=== PATIENT | female | born 1970 | race American Indian/Alaskan Native ===

== ENCOUNTER 2016-10-19 16:26 | Emergency (ER) | payer OTHER ==
[2016-10-19 18:24] LABS: Basophils % (Auto) 0.3 % (0.0-1.8); Eosinophils % (Auto) 0.6 % (0.0-4.3); Hematocrit 43.9 % (30.3-42.9); Hemoglobin 14.1 gm/dl (10.1-14.3); Mean Corpuscular HGB Conc 32 % (30-34); Mean Corpuscular Hemoglobin 29 pg (28-32); Mean Corpuscular Volume 89 fl (79-97); Platelet Count 213 K/mm3 (140-440); Red Blood Count 4.95 M/mm3 (3.65-5.03); White Blood Count 6.9 K/mm3 (4.5-11.0)
[2016-10-19 18:27] LABS: Red Cell Distribution Width 20.8 % (13.2-15.2)
[2016-10-19 18:34] LABS: Anion Gap 20 mmol/L; Blood Urea Nitrogen 7 mg/dL (7-17); Calcium 9.2 mg/dL (8.4-10.2); Carbon Dioxide 26 mmol/L (22-30); Chloride 96.6 mmol/L (98-107); Glucose 80 mg/dL (65-100); Potassium 4.1 mmol/L (3.6-5.0); Sodium 138 mmol/L (137-145)
[2016-10-20] MEDS ORDERED: ULTRAM PO ONE (01:55)
[2016-10-20] MEDS ORDERED: CATAPRES PO ONE (01:55)
[2016-10-20] MEDS ORDERED: TORADOL IV ONE (01:55)
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
[2016-10-20] MEDS ORDERED: NACL ONE (03:42)
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
[2016-10-20 05:45] VITALS: BP 126/77
== END 2016-10-20 06:02 | disposition home or self-care (01) ==
LOC: ED 16:26
DX: S39.012A Strain of muscle, fascia and tendon of lower back, initial encounter (principal); N83.209 Unspecified ovarian cyst, unspecified side; I10 Essential (primary) hypertension; V49.49XA Driver injured in collision with other motor vehicles in traffic accident, initial encounter; Y93.9 Activity, unspecified; Y92.9 Unspecified place or not applicable; Y99.9 Unspecified external cause status
CPT/HCPCS: 36415; 74174; 80048; 84703; 85025; 96374; 99284; J1885; Q9967

== ENCOUNTER 2018-07-16 16:13 | Emergency (ER) | payer OTHER ==
[2018-07-16 16:53] VITALS: BP 133/85
--- NOTE | 2018-07-16 16:53 | Emergency Department Report ---
Blank Doc - Documentation Documentation: This is a 48-year-old female that presents with midsternum chest pain with cou gh. Denies any radiation or SOB. Also has abdominal pain with blood in stool. This initial assessment/diagnostic orders/clinical plan/treatment(s) is/are subject to change based on patient's health status, clinical progression and re- assessment by fellow clinical providers in the ED. Further treatment and workup at subsequent clinical providers discretion. Patient/guardians urged not to elope from the ED as their condition may be serious if not clinically assessed and managed. Initial orders include: 1- Patient sent to MAIN ED for further evaluation and treatment 2- labs 3- EKG 4- CXR
[2018-07-16 17:35] LABS: Basophils % (Auto) 0.6 % (0.0-1.8); Eosinophils % (Auto) 0.4 % (0.0-4.3); Hematocrit 53.3 % (30.3-42.9); Hemoglobin 18.3 gm/dl (10.1-14.3); Lymphocytes # (Auto) 2.3 K/mm3 (1.2-5.4); Lymphocytes % (Auto) 35.8 % (13.4-35.0); Mean Corpuscular HGB Conc 34 % (30-34); Mean Corpuscular Volume 93 fl (79-97); Monocytes # (Auto) 0.5 K/mm3 (0.0-0.8); Monocytes % (Auto) 7.6 % (0.0-7.3); Platelet Count 245 K/mm3 (140-440); Red Blood Count 5.74 M/mm3 (3.65-5.03); Red Cell Distribution Width 16.9 % (13.2-15.2)
[2018-07-16 17:48] LABS: BUN/Creatinine Ratio 18; Blood Urea Nitrogen 11 mg/dL (7-17); Calcium 8.9 mg/dL (8.4-10.2); Hemolysis Index 15
[2018-07-16 17:49] LABS: INR 0.94 (0.87-1.13); Partial Thromboplastin Time 31.5 Sec. (24.2-36.6)
[2018-07-16 18:02] LABS: Amphetamine Screen,Urine PRESUMPTIVE NEGATIVE; Benzodiazepines Screen,Urine PRESUMPTIVE NEGATIVE; Cocaine Screen,Urine PRESUMPTIVE NEGATIVE; Methadone Screen,Urine PRESUMPTIVE NEGATIVE; Opiate Screen,Urine PRESUMPTIVE NEGATIVE
[2018-07-16 18:06] LABS: Bacteria,Urine 1+ /HPF (Negative); Bilirubin,Urine NEG (Negative); Blood,Urine NEG (Negative); Color,Urine Yellow (Yellow); Hyaline Casts,Urine 4 /LPF; Mucus,Urine 3+ /HPF; Urobilinogen,Urine < 2.0 mg/dL (<2.0)
[2018-07-16 18:46] LABS: Cannabinoid Screen,Urine PRESUMPTIVE POSITIVE
--- NOTE | 2018-07-17 02:36 | Emergency Department Report ---
ED Abdominal Pain HPI - General Chief Complaint: Abdominal Pain Stated Complaint: CHEST PAIN/BLOOD IN STOOL Time Seen by Provider: 07/16/18 16:51 Source: patient Mode of arrival: Ambulatory Limitations: No Limitations - History of Present Illness Initial Comments: Patient is a 48-year-old -[place] female with a history of peptic ulcers who presents to the ED with persistent persistent diffuse lower abdominal pain with hematochezia and diarrhea intermittently for the last 3 months. Patient states that the pain got worse in the last 2 days and that she's had nausea but no vomiting. Patient denies dizziness, weakness, fatigue, syncope, headache, vomiting, dysuria, urinary frequency and urgency, vaginal bleeding or chest pain or shortness of breath. Patient states that she was evaluated by a GI physician about a year ago that diagnosed a week peptic ulcer disease after an EGD procedure. Patient admits that she has never had a colonoscopy. Patient states that her pain is intermittent and persistent for 3 months. MD Complaint: abdominal pain, other (hematochezia) -: Gradual, month(s) (3) Location: diffuse, LLQ, RLQ, suprapubic Radiation: none Migration to: suprapubic Severity: moderate Severity scale (0 -10): 6 Quality: cramping, aching Consistency: intermittent Improves With: nothing Worsens With: nothing Associated Symptoms: nausea, diarrhea, hematochezia. denies: vomiting, fever, chills, constipation, dysuria, hematemesis, melena, hematuria, anorexia, syncope - Related Data Previous Rx's Medication Instructions Recorded Last Taken Type amLODIPine [Norvasc] 5 mg PO DAILY #30 tab 10/20/16 Unknown Rx traMADol [Ultram 50 MG tab] 50 mg PO Q6HR PRN #20 tablet 10/20/16 Unknown Rx HYDROcodone/APAP 5-325 [[place] 1 each PO Q6HR PRN #12 tablet 04/22/18 Unknown Rx 5-325 mg TAB] Ibuprofen [Motrin 800 MG tab] 800 mg PO Q8HR PRN #30 tablet 04/22/18 Unknown Rx Allergies Allergy/AdvReac Type Severity Reaction Status Date / Time No Known Allergies Allergy Verified 10/19/16 17:14 ED Review of Systems ROS: Stated complaint: CHEST PAIN/BLOOD IN STOOL Other details as noted in HPI Comment: All other systems reviewed and negative Constitutional: no symptoms reported, see HPI. denies: chills, diaphoresis, malaise, weakness Eyes: as per HPI. denies: eye pain, eye discharge, vision change ENT: as per HPI. denies: ear pain, dental pain, hearing loss Respiratory: no symptoms reported, see HPI. denies: cough, shortness of breath, SOB with exertion, SOB at rest Cardiovascular: as per HPI. denies: chest pain, palpitations, dyspnea on e xertion, syncope, paroxysmal nocturnal dyspnea Endocrine: no symptoms reported, see HPI. denies: excessive sweating, intolerance to cold, increased thirst, increased urine, unexplained weight loss Gastrointestinal: abdominal pain, hematochezia Genitourinary: as per HPI. denies: urgency, dysuria, frequency, hematuria Musculoskeletal: as per HPI. denies: joint swelling, arthralgia Skin: as per HPI. denies: rash, lesions, change in color, change in hair/nails Neurological: as per HPI. denies: headache, numbness, paresthesias, abnormal gait Psychiatric: as per HPI. denies: auditory hallucinations, visual hallucinations Hematological/Lymphatic: as per HPI. denies: easy bruising, swollen glands ED Past Medical Hx - Past Medical History Hx Hypertension: Yes Hx Diabetes: Yes Additional medical history: Peptic ulcers - Surgical History Additional Surgical History: x 1 - Social History Smoking Status: Current Every Day Smoker Substance Use Type: Alcohol - Medications Home Medications: Home Medications Medication Instructions Recorded Confirmed Last Taken Type amLODIPine [Norvasc] 5 mg PO DAILY #30 tab 10/20/16 Unknown Rx traMADol [Ultram 50 MG tab] 50 mg PO Q6HR PRN #20 tablet 10/20/16 Unknown Rx HYDROcodone/APAP 5-325 [[place] 1 each PO Q6HR PRN #12 tablet 04/22/18 Unknown Rx 5-325 mg TAB] Ibuprofen [Motrin 800 MG tab] 800 mg PO Q8HR PRN #30 tablet 04/22/18 Unknown Rx ED Physical Exam - General Limitations: No Limitations General appearance: alert, in no apparent distress - Head Head exam: Present: atraumatic, normocephalic, normal inspection - Eye Eye exam: Present: normal appearance, PERRL, EOMI Pupils: Present: normal accommodation - ENT ENT exam: Present: normal exam, normal orophraynx, mucous membranes moist, TM's normal bilaterally, normal external ear exam - Neck Neck exam: Present: normal inspection, full ROM - Respiratory Respiratory exam: Present: normal lung sounds bilaterally. Absent: respiratory distress, wheezes, rales, chest wall tenderness, accessory muscle use, decreased breath sounds - Cardiovascular Cardiovascular Exam: Present: normal rhythm, tachycardia, normal heart sounds - GI/Abdominal GI/Abdominal exam: Present: soft, tenderness (diffuse lower abdomen), normal bowel sounds. Absent: guarding, rebound, hyperactive bowel sounds, hypoactive bowel sounds, organomegaly, mass, pulsatile mass - Rectal Rectal exam: Present: other (Patient declined rectal exam) - Extremities Exam Extremities exam: Present: normal inspection, full ROM, normal capillary refill - Back Exam Back exam: Present: normal inspection, full ROM. Absent: tenderness, CVA tenderness (R), muscle spasm, paraspinal tenderness - Neurological Exam Neurological exam: Present: alert, oriented X3, CN II-XII intact, normal gait, reflexes normal - Psychiatric Psychiatric exam: Present: normal affect, anxious. Absent: suicidal ideation - Skin Skin exam: Present: warm, dry, intact ED Course Vital Signs 07/16/18 07/16/18 16:51 19:55 Temperature 98.4 F Pulse Rate 111 H 84 Respiratory 22 17 Rate Blood Pressure 133/85 O2 Sat by Pulse 98 99 Oximetry - Reevaluation(s) Reevaluation #1: 07/17/18 02:40 Patient is alert and oriented 3 and is not in any distress but tachycardic in triage. Labs were drawn in the ED included a urinalysis. Lab test results were reviewed and are unremarkable. Patient declined Hemoccult tests and decided to sign out AGAINST MEDICAL ADVICE. 07/17/18 02:41 ED Medical Decision Making - Lab Data Result diagrams: 07/16/18 17:12 07/16/18 17:12 - Medical Decision Making Patient is alert and oriented 3 and is not in any distress but tachycardic in triage. Labs were drawn and the results were reviewed and are all unremarkable. Patient declined further tests including Hemoccult and opted to sign out against medical advise from the ED. - Differential Diagnosis GI BLEEDING, ABDOMINAL PAIN, PEPTIC ULCER DISEASE, DIVERITICULITIS Critical care attestation.: If time is entered above; I have spent that time in minutes in the direct care of this critically ill patient, excluding procedure time. ED Disposition Clinical Impression: GI bleeding Qualifiers: GI bleed type/associated pathology: anorectal hemorrhage Qualified Code(s): K62.5 - Hemorrhage of anus and rectum Abdominal pain Qualifiers: Abdominal location: lower abdomen, unspecified Qualified Code(s): R10.30 - Lower abdominal pain, unspecified Disposition: LEFT AGAINST MED ADVICE Is pt being admited?: No Does the pt Need Aspirin: No Condition: Stable Instructions: Gastrointestinal Bleeding (ED), Abdominal Pain (ED) Referrals: CARMEN REDDY MD [Primary Care Provider] - 3-5 Days Forms: AMA Form, Work/School Release Form(ED) Time of Disposition: 21:34 Print Language: CZECH
== END 2018-07-16 19:55 | disposition left against medical advice (07) ==
LOC: ED 16:13
DX: K92.2 Gastrointestinal hemorrhage, unspecified (principal); I10 Essential (primary) hypertension; E11.9 Type 2 diabetes mellitus without complications; F17.200 Nicotine dependence, unspecified, uncomplicated
CPT/HCPCS: 36415; 80048; 80307; 81001; 83690; 84484; 84703; 85025; 85610; 85730; 93005; 93010; 99284

== ENCOUNTER 2019-10-12 17:01 | Emergency (ER) | payer OTHER ==
[2019-10-13] MEDS ORDERED: HYDROcodone/ACETAMINOPHEN 5-325 MG TAB PO ONE (00:30)
--- NOTE | 2019-10-13 00:44 | XRay Report ---
RIGHT FOOT 3 VIEWS 0027 INDICATION: swelling and pain after injury COMPARISON: None available. FINDINGS: Study was difficult due to patient cooperation. Lucency is seen in the anterior calcaneus w hich appears to represent a nondisplaced but mildly complex fracture. No dislocation is seen. Signer Name: Yahir Soto MD Signed: 10/13/2019 12:40 AM Workstation Name: [id number]
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
[2019-10-13] MEDS ORDERED: KETOROLAC 30 MG/1 ML INJ IM ONE (01:36)
[2019-10-13 02:07] VITALS: BP 148/88
== END 2019-10-13 02:30 | disposition home or self-care (01) ==
LOC: ED 17:01
DX: S92.014A Nondisplaced fracture of body of right calcaneus, initial encounter for closed fracture (principal); I10 Essential (primary) hypertension; E11.9 Type 2 diabetes mellitus without complications; F17.200 Nicotine dependence, unspecified, uncomplicated; Z79.899 Other long term (current) drug therapy; Z98.890 Other specified postprocedural states; W17.89XA Other fall from one level to another, initial encounter; Y93.89 Activity, other specified; Y92.89 Other specified places as the place of occurrence of the external cause; Y99.8 Other external cause status
CPT/HCPCS: 29515; 73630; 96372; 99283; J1885

== ENCOUNTER 2019-12-11 12:21 | Outpatient (CLI) | payer BC, OTHER ==
--- NOTE | 2019-12-11 14:51 | XRay Report ---
RIGHT CALCANEUS 2 VIEWS INDICATION: UNSPECIFIED FRACTURE OF RIGHT CALCANEOUS. COMPARISON: Right foot films 10/13/2019 IMPRESSION: Subtle nondisplaced fracture in the anterior calcaneus is unchanged in position or align ment since the previous exam. Subtle callus formation is noted. No new findings are demonstrated. No joint pathology. Soft tissue swelling has nearly resolved. Signer Name: Brayden Weinstein Jr, MD Signed: 12/11/2019 1:22 PM Workstation Name: [id number]
== END 2019-12-11 12:22 | disposition home or self-care (01) ==
LOC: XRAY 12:21
PROVIDERS: ATTEND Orthopaedic Surgery
DX: S92.001D Unspecified fracture of right calcaneus, subsequent encounter for fracture with routine healing (principal); X58.XXXD Exposure to other specified factors, subsequent encounter

== ENCOUNTER 2020-07-06 13:44 | Emergency (ER) | payer BC ==
--- NOTE | 2020-07-06 14:58 | Event Note ---
ED Screening Note Date of service: 07/06/20 Time: 14:56 ED Screening Note: Patient presents to the ER today with complaints of elevated blood pressure. She states that she went to the urgent care this morning because for the past couple days she has been having abdominal pain and for the past week she has not been feeling well, she has been feeling lightheaded and dizzy and Monday was having difficulty with her right upper and lower extremity. She states that he felt weak and was painful was having difficulty using her right upper and lower extremity but this has since improved. At the urgent care her blood pressure was significantly elevated and she was sent to the ER. Patient does have a known history of hypertension but has been noncompliant with her medication This initial assessment/diagnostic orders/clinical plan/treatment(s) is/are subject to change based on patients health status, clinical progression and re- assessment by fellow clinical providers in the ED. Further treatment and workup at subsequent clinical providers discretion. Patient/guardian urged not to elope from the ED as their condition may be serious if not clinically assessed and managed. Initial orders include: Labs/EKG/head CT
--- NOTE | 2020-07-06 15:57 | XRay Report ---
XR chest routine 2V INDICATION / CLINICAL INFORMATION: Chest Pain COMPARISON: None available. FINDINGS: SUPPORT DEVICES: None. HEART / MEDIASTINUM: No significant abnormality. LUNGS / PLEURA: Lungs are clear. Costophrenic sulci are sharp. No pneumothorax. ADDITIONAL FINDINGS: No significant additional findings. IMPRESSION: 1. No acute findings. Signer Name: Tristan Clinton MD Signed: 07/06/2020 3:53 PM Workstation Name: [id number]
[2020-07-06 16:10] LABS: Basophils # (Auto) 0.1 K/mm3 (0.0-0.1); Basophils % (Auto) 0.7 % (0.0-1.8); Eosinophils % (Auto) 0.1 % (0.0-4.3); Hemoglobin 19.8 gm/dl (10.1-14.3); Lymphocytes # (Auto) 2.1 K/mm3 (1.2-5.4); Lymphocytes % (Auto) 25.6 % (13.4-35.0); Mean Corpuscular HGB Conc 34 % (30-34); Mean Corpuscular Volume 102 fl (79-97); Monocytes # (Auto) 0.6 K/mm3 (0.0-0.8); Monocytes % (Auto) 7.8 % (0.0-7.3); Red Blood Count 5.78 M/mm3 (3.65-5.03); Red Cell Distribution Width 14.9 % (13.2-15.2)
[2020-07-06 16:21] LABS: INR 1.02 (0.87-1.13)
[2020-07-06 16:22] LABS: Partial Thromboplastin Time 29.7 Sec. (24.2-36.6)
[2020-07-06 16:25] LABS: Alanine Aminotransferase 45 units/L (7-56); Albumin 4.1 g/dL (3.9-5); Blood Urea Nitrogen 8 mg/dL (7-17); Calcium 8.8 mg/dL (8.4-10.2); Hemolysis Index 28
[2020-07-06 16:26] LABS: BUN/Creatinine Ratio 20
--- NOTE | 2020-07-06 16:45 | Cat Scan Report ---
CT BRAIN: 07/06/2020 INDICATION / CLINICAL INFORMATION: dizzy/right sided weakness/elevated bp for few days Rt sided numbness x few days. COMPARISON: None available. FINDINGS: BRAIN/INTRACRANIAL STRUCTURES: Unenhanced CT images of the brain demonstrate no evidence of acute int racranial abnormality. Ventricles and sulci are within normal limits of size and shape for a patient of this age. There is no evidence of ischemic injury, hemorrhage, or mass. There are no abnormal extra-axial fluid collections. EXTRACRANIAL STRUCTURES: Unremarkable. IMPRESSION: No acute abnormality. Negative unenhanced CT of the brain. All CT scans at this location are performed using dose reduction to ALARA by means of automated expos ure control. Signer Name: Jay Rodriguez MD Signed: 07/06/2020 4:41 PM Workstation Name: [id number]
[2020-07-06] MEDS ORDERED: hydrALAZINE 20 MG/1 ML INJ IV ONE (16:55)
[2020-07-06 17:03] LABS: Platelet Count 180 K/mm3 (140-440)
--- NOTE | 2020-07-06 17:23 | Emergency Department Report ---
ED General Adult HPI - General Chief complaint: High BP Stated complaint: HYPERTENSIVE Time Seen by Provider: 07/06/20 16:04 Source: patient Mode of arrival: Ambulatory Limitations: No Limitations - History of Present Illness Initial comments: Patient presents to the emergency department after being seen in urgent care for elevated blood pressure. Patient's BP is 242/173 on my evaluation. Patient complains of dizziness and headaches with blurred vision. Patient also complains of chest tightness as well. Patient states her original reasoning for going to the urgent care was due to abdominal pain that has been present for a year. Patient describes the abdominal pain being located in the upper aspect of her stomach. -: unknown Location: head, abdomen Radiation: non-radiation Severity scale (0 -10): 7 Quality: sharp Consistency: constant Improves with: none Worsens with: none Associated Symptoms: denies other symptoms Treatments Prior to Arrival: none - Related Data Previous Rx's Medication Instructions Recorded Last Taken Type amLODIPine [Norvasc] 5 mg PO DAILY #30 tab 10/20/16 Unknown Rx traMADoL [Ultram 50 MG tab] 50 mg PO Q6HR PRN #20 tablet 10/20/16 Unknown Rx HYDROcodone/APAP 5-325 [Jolon 1 each PO Q6HR PRN #12 tablet 04/22/18 Unknown Rx 5-325 mg TAB] Ibuprofen [Motrin 800 MG tab] 800 mg PO Q8HR PRN #30 tablet 04/22/18 Unknown Rx Acetaminophen/Codeine [Tylenol 1 tab PO Q6H PRN #10 tab 10/13/19 Unknown Rx /Codeine # 3 tab] Ibuprofen [Motrin 800 MG tab] 800 mg PO Q8HR PRN #21 tablet 10/13/19 Unknown Rx Amoxicillin/Potassium Clav 1 each PO BID #14 tablet 07/06/20 Unknown Rx [Augmentin 875-125 Tablet] amLODIPine [Norvasc] 10 mg PO DAILY #30 tab 07/06/20 Unknown Rx hydroCHLOROthiazide [Hctz] 25 mg PO QDAY #30 capsule 07/06/20 Unknown Rx Allergies Allergy/AdvReac Type Severity Reaction Status Date / Time No Known Allergies Allergy Verified 10/19/16 17:14 ED Review of Systems ROS: Stated complaint: HYPERTENSIVE Other details as noted in HPI Comment: All other systems reviewed and negative Constitutional: denies: chills, fever Eyes: denies: eye pain, eye discharge, vision change ENT: denies: ear pain, throat pain Respiratory: denies: cough, shortness of breath, wheezing Cardiovascular: denies: chest pain, palpitations Endocrine: no symptoms reported Gastrointestinal: denies: abdominal pain, nausea, diarrhea Genitourinary: denies: urgency, dysuria, discharge Musculoskeletal: denies: back pain, joint swelling, arthralgia Skin: denies: rash, lesions Neurological: headache. denies: weakness, paresthesias Psychiatric: denies: anxiety, depression Hematological/Lymphatic: denies: easy bleeding, easy bruising ED Past Medical Hx - Past Medical History Previous Medical History?: Yes Hx Hypertension: Yes Hx Diabetes: Yes Additional medical history: Peptic ulcers - Surgical History Additional Surgical History: x 1 - Social History Smoking Status: Never Smoker - Medications Home Medications: Home Medications Medication Instructions Recorded Confirmed Last Taken Type amLODIPine [Norvasc] 5 mg PO DAILY #30 tab 10/20/16 Unknown Rx traMADoL [Ultram 50 MG tab] 50 mg PO Q6HR PRN #20 tablet 10/20/16 Unknown Rx HYDROcodone/APAP 5-325 [Jolon 1 each PO Q6HR PRN #12 tablet 04/22/18 Unknown Rx 5-325 mg TAB] Ibuprofen [Motrin 800 MG tab] 800 mg PO Q8HR PRN #30 tablet 04/22/18 Unknown Rx Acetaminophen/Codeine [Tylenol 1 tab PO Q6H PRN #10 tab 10/13/19 Unknown Rx /Codeine # 3 tab] Ibuprofen [Motrin 800 MG tab] 800 mg PO Q8HR PRN #21 tablet 10/13/19 Unknown Rx Amoxicillin/Potassium Clav 1 each PO BID #14 tablet 07/06/20 Unknown Rx [Augmentin 875-125 Tablet] amLODIPine [Norvasc] 10 mg PO DAILY #30 tab 07/06/20 Unknown Rx hydroCHLOROthiazide [Hctz] 25 mg PO QDAY #30 capsule 07/06/20 Unknown Rx ED Physical Exam - General Limitations: No Limitations General appearance: alert, in no apparent distress - Head Head exam: Present: atraumatic, normocephalic - Eye Eye exam: Present: normal appearance, PERRL - ENT ENT exam: Present: mucous membranes moist - Neck Neck exam: Present: normal inspection - Respiratory Respiratory exam: Present: normal lung sounds bilaterally. Absent: respiratory distress - Cardiovascular Cardiovascular Exam: Present: regular rate, normal rhythm. Absent: systolic murmur, diastolic murmur, rubs, gallop - GI/Abdominal GI/Abdominal exam: Present: soft, normal bowel sounds. Absent: distended, tenderness - Extremities Exam Extremities exam: Present: normal inspection - Back Exam Back exam: Present: normal inspection - Neurological Exam Neurological exam: Present: alert, oriented X3, CN II-XII intact. Absent: motor sensory deficit - Psychiatric Psychiatric exam: Present: normal affect, normal mood - Skin Skin exam: Present: warm, dry, intact, normal color. Absent: rash ED Course Vital Signs 07/06/20 07/06/20 07/06/20 14:47 16:09 16:30 Temperature 98.6 F Pulse Rate 98 H 100 H Respiratory 18 14 Rate Blood Pressure 204/134 Blood Pressure 200/132 242/173 [Left] Blood Pressure 197/139 [Right] O2 Sat by Pulse 99 Oximetry 07/06/20 07/06/20 07/06/20 17:00 17:06 18:14 Temperature Pulse Rate 84 97 H 111 H Respiratory 13 16 Rate Blood Pressure 205/136 205/136 126/77 Blood Pressure [Left] Blood Pressure [Right] O2 Sat by Pulse Oximetry 07/06/20 19:00 Temperature Pulse Rate 106 H Respiratory 20 Rate Blood Pressure 122/81 Blood Pressure [Left] Blood Pressure [Right] O2 Sat by Pulse 98 Oximetry ED Medical Decision Making - Lab Data Result diagrams: 07/06/20 15:45 07/06/20 15:45 Lab Results 07/06/20 07/06/20 07/06/20 Range/Units 15:45 15:45 15:45 WBC 8.0 (4.5-11.0) K/mm3 RBC 5.78 H (3.65-5.03) M/mm3 Hgb 19.8 H (10.1-14.3) gm/dl Hct 59.0 H* (30.3-42.9) % MCV 102 H (79-97) fl MCH 34 H (28-32) pg MCHC 34 (30-34) % RDW 14.9 (13.2-15.2) % Plt Count 180 (140-440) K/mm3 Lymph % (Auto) 25.6 (13.4-35.0) % Delta % (Auto) 7.8 H (0.0-7.3) % Eos % (Auto) 0.1 (0.0-4.3) % Baso % (Auto) 0.7 (0.0-1.8) % Lymph # (Auto) 2.1 (1.2-5.4) K/mm3 Delta # (Auto) 0.6 (0.0-0.8) K/mm3 Eos # (Auto) 0.0 (0.0-0.4) K/mm3 Baso # (Auto) 0.1 (0.0-0.1) K/mm3 Seg Neutrophils % 65.8 (40.0-70.0) % Seg Neutrophils # 5.3 (1.8-7.7) K/mm3 PT 13.2 (12.2-14.9) Sec. INR 1.02 (0.87-1.13) APTT 29.7 (24.2-36.6) Sec. Sodium 138 (137-145) mmol/L Potassium 3.3 L (3.6-5.0) mmol/L Chloride 95.8 L (98-107) mmol/L Carbon Dioxide 28 (22-30) mmol/L Anion Gap 18 mmol/L BUN 8 (7-17) mg/dL Creatinine 0.4 L (0.6-1.2) mg/dL Estimated GFR > 60 ml/min BUN/Creatinine Ratio 20 % Glucose 100 (65-100) mg/dL Calcium 8.8 (8.4-10.2) mg/dL Total Bilirubin 0.60 (0.1-1.2) mg/dL AST 35 (5-40) units/L ALT 45 (7-56) units/L Alkaline Phosphatase 82 (35-129) units/L Troponin T < 0.010 (0.00-0.029) ng/mL Total Protein 7.7 (6.3-8.2) g/dL Albumin 4.1 (3.9-5) g/dL Albumin/Globulin Ratio 1.1 % Lipase (13-60) units/L Plasma/Serum Alcohol (0-0.07) % 07/06/20 07/06/20 07/06/20 Range/Units 16:54 16:54 18:29 WBC (4.5-11.0) K/mm3 RBC (3.65-5.03) M/mm3 Hgb (10.1-14.3) gm/dl Hct (30.3-42.9) % MCV (79-97) fl MCH (28-32) pg MCHC (30-34) % RDW (13.2-15.2) % Plt Count (140-440) K/mm3 Lymph % (Auto) (13.4-35.0) % Delta % (Auto) (0.0-7.3) % Eos % (Auto) (0.0-4.3) % Baso % (Auto) (0.0-1.8) % Lymph # (Auto) (1.2-5.4) K/mm3 Delta # (Auto) (0.0-0.8) K/mm3 Eos # (Auto) (0.0-0.4) K/mm3 Baso # (Auto) (0.0-0.1) K/mm3 Seg Neutrophils % (40.0-70.0) % Seg Neutrophils # (1.8-7.7) K/mm3 PT (12.2-14.9) Sec. INR (0.87-1.13) APTT (24.2-36.6) Sec. Sodium (137-145) mmol/L Potassium (3.6-5.0) mmol/L Chloride (98-107) mmol/L Carbon Dioxide (22-30) mmol/L Anion Gap mmol/L BUN (7-17) mg/dL Creatinine (0.6-1.2) mg/dL Estimated GFR ml/min BUN/Creatinine Ratio % Glucose (65-100) mg/dL Calcium (8.4-10.2) mg/dL Total Bilirubin (0.1-1.2) mg/dL AST (5-40) units/L ALT (7-56) units/L Alkaline Phosphatase (35-129) units/L Troponin T < 0.010 (0.00-0.029) ng/mL Total Protein (6.3-8.2) g/dL Albumin (3.9-5) g/dL Albumin/Globulin Ratio % Lipase 17 (13-60) units/L Plasma/Serum Alcohol 0.15 H (0-0.07) % - EKG Data -: EKG Interpreted by Me EKG shows normal: sinus rhythm Rate: normal - Radiology Data Radiology results: report reviewed - Medical Decision Making Patient received IV hydralazine for her BP Patient was being admitted when she stated she did not not want to stay in the hospital and wants to go home. Her repeat blood pressure systolically is in the 120s Patient states that her symptoms of headache and blurred vision have resolved. Again expressed the patient the need for me to admitted to the hospital but she declined Critical Care Time: Yes Critical care time in (mins) excluding proc time.: 35 Critical care attestation.: If time is entered above; I have spent that time in minutes in the direct care of this critically ill patient, excluding procedure time. ED Disposition Clinical Impression: Colitis, Hypertensive urgency Disposition: DC-01 TO HOME OR SELFCARE Is pt being admited?: No Does the pt Need Aspirin: No Condition: Stable Instructions: Hypertension, Adult, Colitis Additional Instructions: Return if worse Time of Disposition: 19:31
[2020-07-06] MEDS ORDERED: SODIUM CHLORIDE 0.9% 1000 ML 1,000 ML ONE (17:48)
--- NOTE | 2020-07-06 18:30 | Cat Scan Report ---
CT ABDOMEN AND PELVIS WITH CONTRAST HISTORY: abdominal pain. COMPARISON: None. TECHNIQUE: CT images of the abdomen and pelvis were obtained following administration of intravenous contrast. All CT scans at this location are performed using CT dose reduction for ALARA by means of automated exposure control. CONTRAST: 100 ml of intravenous contrast administered. FINDINGS: Lungs/bones: Lung bases are clear Abdomen/pelvis: There is diffuse fatty infiltration of the liver some focal fatty sparing surroundin g the gallbladder fossa. No definite enhancing lesion. Spleen, adrenal glands, pancreas appear normal . Gallbladder appears normal. There may be some mild thickening of the pylorus of the stomach however no surrounding inflammation is seen. There is diverticulosis throughout the colon and into the sigmo id colon mild thickening of the distal sigmoid colon and rectum. Evaluation of the proximal colon is limited as it is not well-distended. No dominant adenopathy. Kidneys appear normal. Degenerative olguin ges seen throughout spine. Portal vein is patent. No dominant adenopathy. Appendix appears normal. IMPRESSION: 1. Fatty infiltration of the liver. 2. Diverticulosis of the colon. Questionable mild thickening versus incomplete distention throughout the colon. Mild thickening in the region of the distal sigmoid colon and rectum.. A mild colitis, inf ection/inflammation cannot be excluded. No free fluid or focal inflammatory change. Clinical correlat ion. 3. Appendix appears normal. No evidence for bowel obstruction. Signer Name: Enrique Mosqueda MD Signed: 07/06/2020 6:25 PM Workstation Name: [id number]
[2020-07-06] MEDS ORDERED: PIPERACIL/TAZOBACTA 4.5/NS 100 4.5 GM/100 ML VIAL IV ONE (18:50)
[2020-07-06] MEDS ORDERED: ASPIRIN 81 MG TAB CHEW PO ONE (18:51)
[2020-07-06] MEDS ORDERED: SODIUM CHLORIDE 0.9% 1000 ML 1,000 ML IV ONE (18:51)
[2020-07-06 20:35] VITALS: BP 140/95
--- NOTE | 2020-07-09 10:35 | Electrocardiograph Report ---
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
== END 2020-07-06 20:05 | disposition home or self-care (01) ==
LOC: ED 13:44
DX: K52.9 Noninfective gastroenteritis and colitis, unspecified (principal); I16.0 Hypertensive urgency; E11.9 Type 2 diabetes mellitus without complications; Z98.890 Other specified postprocedural states; Z79.1 Long term (current) use of non-steroidal anti-inflammatories (NSAID); Z79.2 Long term (current) use of antibiotics; Z79.899 Other long term (current) drug therapy
CPT/HCPCS: 36415; 70450; 71046; 74177; 80053; 83690; 84484; 85025; 85610; 85730; 93005; 96374; 99284; J0360; J7030; Q9967; 80320; G0480